=== PATIENT | female | born 1970 | race Caucasian/White ===

== ENCOUNTER 2020-12-26 17:24 | Emergency (ER) | payer OTHER ==
[~2020-12-26] VITALS: Ht 137.2 cm; Wt 61.0 kg
[2020-12-26] MEDS ORDERED: ONDANSETRON HCL 4MG/2ML INJ IV STA (18:08)
[2020-12-26] MEDS ORDERED: KETOROLAC 30MG/ML VIAL IV STA (18:08)
[2020-12-26] MEDS ORDERED: SODIUM CHLORIDE 0.9% 1,000 ML IV ONE (18:15)
[2020-12-26 18:54] LABS: BASOPHILS % 0.7 % (0.0-2.0); EOSINOPHILS % 0.1 % (0.0-5.0); HEMATOCRIT. 36.8 % (36.0-48.0); HEMOGLOBIN. 12.8 g/dL (12.0-16.0); LYMPHOCYTES % 17.6 % (20.0-50.0); MEAN CORPUSCULAR HEMOGLOBIN 30.9 pg (28.0-32.0); MEAN CORPUSCULAR VOLUME 89.1 fL (81.0-99.0); MEAN PLATELET VOLUME 7.9 fl (7.4-10.4); MONOCYTES % 8.5 % (2.0-8.0); NEUTROPHILS % 73.1 % (40.0-76.0); PLATELET 205 x1000/uL (130-400); RED BLOOD CELL COUNT 4.13 mill/uL (4.2-5.4); RED CELL DISTRIBUTION WIDTH 13.6 % (11.6-14.6)
[2020-12-26 18:58] LABS: CHLORIDE 107 mEq/L (98-107)
[2020-12-26 19:08] LABS: CLARITY URINE CLOUDY (CLEAR); COLOR URINE YELLOW (YELLOW); KETONES URINE NEGATIVE (NEGATIVE); LEUKOCYTE ESTERASE URINE NEGATIVE (NEGATIVE); NITRITE URINE NEGATIVE (NEGATIVE); OCCULT BLOOD URINE NEGATIVE (NEGATIVE); PH URINE 7.5 (4.5-8.0); PROTEIN URINE NEGATIVE (NEGATIVE); SPECIFIC GRAVITY URINE 1.009 (1.005-1.030); UROBILINOGEN URINE 0.2 E.U./dL (0.2-1.0)
[2020-12-26] MEDS ORDERED: DIF15 MT (21:40)
[2020-12-26] MEDS ORDERED: CEPH500C2 MT (21:40)
[2020-12-26] MEDS ORDERED: BACL-141 MT (21:50)
[2020-12-26] MEDS ORDERED: FLUCONAZOLE 100MG TABLET PO NR (22:00)
[2020-12-26] MEDS ORDERED: KETOROLAC 15MG/ML VIAL IV ONE (22:00)
[2020-12-26] MEDS ORDERED: CEPHALEXIN 250MG CAPSULE PO NR (22:00)
[2020-12-26] MEDS ORDERED: LIDOCAINE 5% PATCH TOP SCH (22:00)
[2020-12-26 22:07] VITALS: BP 106/54
== END 2020-12-26 22:40 | disposition home or self-care (01) ==
LOC: ER 17:24
DX: R10.11 Right upper quadrant pain (principal); R82.71 Bacteriuria; B37.9 Candidiasis, unspecified
CPT/HCPCS: 36415; 74176; 76700; 80053; 81003; 83605; 83690; 85025; 85610; 87040; 87086; 96361; 96374; 96375; 96376; 99285; J1885; J2405; J7030

== ENCOUNTER 2023-11-08 07:32 | Emergency (ER) | payer BC, MEDICAID ==
[~2023-11-08] VITALS: Ht 157.5 cm; Wt 73.0 kg
[~2023-11-08 07:32] MED LIST: BACL-141 MT; CEPH500C2 MT; DIF15 MT
[2023-11-08 07:35] VITALS: O2SAT 98
[2023-11-08] MEDS ORDERED: DICL100G58 TP (08:50)
[2023-11-08] MEDS: KETOROLAC 30MG/ML VIAL IM ONE (10:03)
[2023-11-08 10:15] VITALS: BP 126/82; PULSE 73; RESP 19; TEMP 98.5
== END 2023-11-08 12:15 | disposition home or self-care (01) ==
LOC: ER 07:32
DX: S83.92XA Sprain of unspecified site of left knee, initial encounter (principal); S93.402A Sprain of unspecified ligament of left ankle, initial encounter; M17.12 Unilateral primary osteoarthritis, left knee; W18.39XA Other fall on same level, initial encounter; Y93.89 Activity, other specified; Y92.89 Other specified places as the place of occurrence of the external cause; Y99.8 Other external cause status
CPT/HCPCS: 99284; 81025; 73562; 73610; 96372; J1885